=== PATIENT | female | born 1940 | race Caucasian/White ===

== ENCOUNTER → 2016-11-19 | Outpatient (CLI) | payer MEDICARE, BC ==
[~2016-11-19] MED LIST: ALPRAZOLAM0.25 MG PO; COLACE 100100 MG/CAP PO; DICYCLOCOT10 MG PO; DICYCLOMINE HCL10 MG PO; FENOFIBRATE54 MG PO; FOLIC ACID 40400 MCG PO; GLIPIZIDE5 MG PO; IMIPRAMINE25 MG PO; IMITREX 25MG TA25 MG PO; IRON325 M1 PO; METOPROLOL SUCC25 M1 PO; OXYBUTYNIN5 MG PO; PRAVASTATIN40 MG PO; PROPRANOLOL HCL40 MG PO; ULTRAM 50MG TAB50 MG PO; VITAMIN C BUFF500 MG PO
== END ==
LOC: MC.RAD 09:27
DX: Z12.31 Encounter for screening mammogram for malignant neoplasm of breast (principal)

== ENCOUNTER → 2018-01-01 | Outpatient (CLI) | payer MEDICARE, BC | LOC: MC.RAD 10:16 | DX: Z12.31 Encounter for screening mammogram for malignant neoplasm of breast (principal) ==

== ENCOUNTER → 2019-03-04 | Outpatient (CLI) | payer MEDICARE, BC | LOC: MC.RAD 09:55 | DX: Z12.31 Encounter for screening mammogram for malignant neoplasm of breast (principal) ==

== ENCOUNTER → 2020-04-29 | Outpatient (CLI) | payer MEDICARE, BC | LOC: MC.RAD 09:14 | DX: Z12.31 Encounter for screening mammogram for malignant neoplasm of breast (principal); Z98.82 Breast implant status ==

== ENCOUNTER 2021-04-01 08:07 | Emergency (ER) | payer MEDICARE, BC ==
[~2021-04-01] VITALS: Ht 157.5 cm; Wt 57.7 kg
[2021-04-01 08:15] VITALS: TEMP 97.5
[2021-04-01] MEDS ORDERED: ZOFRAN 4MG T4 MG/TAB PO (08:24)
[2021-04-01] MEDS ORDERED: IMITREX50 MG PO (08:24)
[2021-04-01] MEDS ORDERED: INDERAL LA 80MG80 MG PO (08:24)
[2021-04-01] MEDS ORDERED: GLUCOTROL 5M5 MG/TAB PO (08:24)
[2021-04-01] MEDS ORDERED: PRAVACHOL 40MG40 MG PO (08:24)
[2021-04-01] MEDS ORDERED: COZAAR 25MG25 MG/TAB PO (08:25)
[2021-04-01] MEDS ORDERED: PRESERVISION1 SGL PO (08:26)
[2021-04-01] MEDS ORDERED: ACIDOPHILIS PO (08:26)
[2021-04-01] MEDS ORDERED: TYLENOL 500MG500 MG PO (08:27)
[2021-04-01] MEDS ORDERED: MIRALAX119G PO (08:28)
[2021-04-01 09:31] LABS: BASO % 0.5 % (0.0-2.0); EOS # 0.2 (0.0-0.7); EOS % 2.1 % (0-4.0); GRAN # 5.4 (1.4-6.5); GRAN % 69.8 % (42.2-75.2); HEMATOCRIT 36.8 % (37.0-47.0); LYMPH # 1.6 (1.2-3.4); LYMPH % 20.1 % (20.0-51.0); MEAN CELL VOLUME 93 fl (80.0-100.0); MEAN CORPUSCULAR HEMOGLOBIN 30 pg (27.0-31.0); MEAN CORPUSCULAR HGB CONC 33 g/dl (33.0-37.0); MEAN PLATELET VOLUME 8.7 fl (7.4-10.4); MONO # 0.5 (0.1-0.6); PLATELET COUNT 282 K/mm3 (130-400); RED BLOOD COUNT 3.95 M/mm3 (4.10-5.30); REDCELL DISTRIBUTION WIDTH-CV 12.7 % (11.5-14.5)
[2021-04-01 09:43] LABS: BILIRUBIN,TOTAL 0.5 mg/dL (0.0-1.0); CALCIUM 9.8 mg/dL (8.4-10.2); CREATININE, serum 0.97 (0.52-1.25); POTASSIUM 4.1 mmol/L (3.4-5.0); TOTAL PROTEIN 7.2 gm/dL (6.4-8.2)
[2021-04-01 12:35] VITALS: BP 168/86; PULSE 69
== END 2021-04-01 12:40 | disposition short-term general hospital (02) ==
LOC: COL.ER 08:07
PROVIDERS: Family Medicine
DX: S06.6X0A Traumatic subarachnoid hemorrhage without loss of consciousness, initial encounter (principal); E11.9 Type 2 diabetes mellitus without complications; Z79.84 Long term (current) use of oral hypoglycemic drugs; W17.89XA Other fall from one level to another, initial encounter; W22.8XXA Striking against or struck by other objects, initial encounter

== ENCOUNTER → 2021-05-05 | Outpatient (CLI) | payer MEDICARE, BC ==
[~2021-05-05] MED LIST changes: +ACIDOPHILIS PO; +COZAAR 25MG25 MG/TAB PO; +GLUCOTROL 5M5 MG/TAB PO; +IMITREX50 MG PO; +INDERAL LA 80MG80 MG PO; +MIRALAX119G PO; +PRAVACHOL 40MG40 MG PO; +PRESERVISION1 SGL PO; +TYLENOL 500MG500 MG PO; +ZOFRAN 4MG T4 MG/TAB PO
== END ==
LOC: MC.RAD 09:30
DX: Z12.31 Encounter for screening mammogram for malignant neoplasm of breast (principal)